=== PATIENT | female | born 2000 | race African-American/Black ===

== ENCOUNTER 2024-05-11 07:33 | Emergency (ER) | payer MEDICAID ==
[~2024-05-11] VITALS: Ht 170.2 cm; Wt 65.0 kg
[2024-05-11 07:50] VITALS: BP 103/74; PULSE 95; RESP 18; TEMP 98.7; O2SAT 100
[2024-05-11] MEDS: ONDANSETRON 4MG ODT PO STA (09:54)
[2024-05-11 10:11] LABS: CHLORIDE 101 mEq/L (98-107); POTASSIUM 3.8 mEq/L (3.5-5.1); SODIUM 136 mEq/L (136-145)
[2024-05-11 10:12] LABS: CALCIUM 9.6 mg/dL (8.7-10.4); CARBON DIOXIDE 26 mEq/L (21-32); INR 1.2; PROTHROMBIN TIME 12.8 sec (9.6-11.0)
[2024-05-11 10:17] LABS: BASOPHILS % 0.3 % (0.0-2.0); CREATININE 0.8 mg/dL (0.6-1.0); EOSINOPHILS % 0.3 % (0.0-5.0); GLUCOSE 86 mg/dL (70-105); HEMATOCRIT. 42.9 % (36.0-48.0); HEMOGLOBIN. 14.3 g/dL (12.0-16.0); LYMPHOCYTES % 10.2 % (20.0-50.0); MEAN CORPUSCULAR HEMOGLOBIN 31.1 pg (28.0-32.0); MEAN CORPUSCULAR HGB CONC 33.4 g/dL (31.0-37.0); MEAN PLATELET VOLUME 8.8 fl (7.4-10.4); MONOCYTES % 11.2 % (2.0-8.0); PLATELET 204 x1000/uL (130-400); RED BLOOD CELL COUNT 4.61 mill/uL (4.2-5.4); RED CELL DISTRIBUTION WIDTH 13.1 % (11.6-14.6); UREA NITROGEN BLOOD 6 mg/dL (9-23); WHITE BLOOD COUNT 8.5 x1000/uL (4.5-11.0)
[2024-05-11 10:18] LABS: HCG SCREEN NEGATIVE
[2024-05-11 10:19] LABS: ALANINE AMINOTRANSFERASE 23 IU/L (10-49); ALBUMIN 4.4 g/dL (3.2-4.8); ASPARTATE AMINOTRANSFERASE 31 IU/L (<34); BILIRUBIN DIRECT 0.2 mg/dL (<=3.0); BILIRUBIN TOTAL 0.5 mg/dL (0.1-1.0); PROTEIN TOTAL 7.6 g/dL (6.0-8.3)
== END 2024-05-11 11:48 | disposition home or self-care (01) ==
LOC: ER 07:47
DX: B34.9 Viral infection, unspecified (principal)
CPT/HCPCS: 99283; 80076; 80048; 84703; 83690; 85025; 85610; 36415; Q0162